=== PATIENT | female | born 1960 | race Caucasian/White ===

== ENCOUNTER 2022-03-17 21:05 | Emergency (ER) | payer OTHER ==
[~2022-03-17] VITALS: Ht 170.2 cm; Wt 95.3 kg
[2022-03-17 21:27] VITALS: BP 121/72
[2022-03-17 22:30] VITALS: BP 121/72
--- NOTE | 2022-03-17 22:51 | NUR ---
Dr. Rosenberg examining patient.
[2022-03-17] MEDS ORDERED: KETOROLAC 60 MG/2 ML VIAL IM ONE (22:55)
[2022-03-17] MEDS ORDERED: NAPR-54 PO (23:46)
--- NOTE | 2022-03-17 23:48 | NUR ---
patient cleared for discharge by . Discharge instructions and medication adminstration/side effects explained by Dr. Rosenberg. Rx NAPROSYN of provided.
== END 2022-03-17 23:48 | disposition home or self-care (01) ==
LOC: MED 21:05
DX: S43.492A Other sprain of left shoulder joint, initial encounter (principal); I10 Essential (primary) hypertension; E11.9 Type 2 diabetes mellitus without complications; F31.9 Bipolar disorder, unspecified; F17.210 Nicotine dependence, cigarettes, uncomplicated; F12.90 Cannabis use, unspecified, uncomplicated; Z79.4 Long term (current) use of insulin; Z79.899 Other long term (current) drug therapy; W18.30XA Fall on same level, unspecified, initial encounter; Y93.89 Activity, other specified; Y92.89 Other specified places as the place of occurrence of the external cause; Y99.8 Other external cause status
CPT/HCPCS: 73030; 96372; 99283; J1885